=== PATIENT | female | born 2000 | race Caucasian/White ===

== ENCOUNTER 2021-01-01 20:43 | Emergency (ER) | payer MEDICAID ==
[~2021-01-01] VITALS: Ht 149.9 cm; Wt 48.6 kg
[2021-01-01] MEDS ORDERED: ETHI1TAB26 PO (20:49)
[2021-01-01] MEDS ORDERED: SODIUM CHLORIDE 0.9% 1,000 ML IV ONE (21:15)
[2021-01-01] MEDS ORDERED: METOCLOPRAMIDE HCL 5 MG/ML 2 ML VIAL IVP ONE (21:45)
[2021-01-01] MEDS ORDERED: DiphenhydrAMINE HCL 50 MG/ML VIAL IVP ONE (21:45)
[2021-01-01 23:00] VITALS: BP 104/64
== END 2021-01-01 23:00 | disposition home or self-care (01) ==
LOC: EMS 20:47
DX: R51.9 Headache, unspecified (principal); R11.2 Nausea with vomiting, unspecified
CPT/HCPCS: 36415; 84702; 96361; 96374; 96375; 99284; J1200; J2765; J7030

== ENCOUNTER 2021-12-16 17:56 | Emergency (ER) | payer MEDICAID ==
[~2021-12-16] VITALS: Ht 149.9 cm; Wt 49.1 kg
[~2021-12-16 17:56] MED LIST: ETHI1TAB26 PO
[2021-12-16] MEDS ORDERED: SILVER SULFADIAZINE 1% 25 GM CREAM TP ONE (19:45)
[2021-12-16] MEDS ORDERED: HYDROCODONE/ACETAMINOPHEN 5-325 MG TABLET PO ONE (19:45)
[2021-12-16 20:52] VITALS: BP 130/89
[2021-12-16] MEDS ORDERED: TRAM50TA4 PO (21:18)
== END 2021-12-16 21:38 | disposition home or self-care (01) ==
LOC: EMS 17:56
DX: T23.252A Burn of second degree of left palm, initial encounter (principal); Z79.899 Other long term (current) drug therapy; F12.90 Cannabis use, unspecified, uncomplicated; X19.XXXA Contact with other heat and hot substances, initial encounter; Y93.89 Activity, other specified; Y92.89 Other specified places as the place of occurrence of the external cause; Y99.8 Other external cause status
CPT/HCPCS: 16020; 99283

== ENCOUNTER 2023-07-05 23:37 | Emergency (ER) | payer MEDICAID ==
[~2023-07-05] VITALS: Ht 149.9 cm; Wt 49.0 kg
[~2023-07-05 23:37] MED LIST changes: +TRAM-559 PO
[2023-07-05 23:40] VITALS: TEMP 99.3
[2023-07-06 00:07] VITALS: BP 133/82; PULSE 78; RESP 14
[2023-07-06] MEDS ORDERED: METHOCARBAMOL 500 MG TABLET PO ONE (00:15)
[2023-07-06] MEDS ORDERED: KETOROLAC TROMETHAMINE 60 MG/2 ML VIAL IM ONE (00:15)
[2023-07-06] MEDS ORDERED: IBUP-1554 PO (01:32)
[2023-07-06] MEDS ORDERED: METH-659 PO (01:32)
== END 2023-07-06 01:38 | disposition home or self-care (01) ==
LOC: EMS 23:37
DX: S13.4XXA Sprain of ligaments of cervical spine, initial encounter (principal); F12.90 Cannabis use, unspecified, uncomplicated; V29.888A Rider (driver) (passenger) of other motorcycle injured in other specified transport accidents, initial encounter; Y93.I9 Activity, other involving external motion; Y92.89 Other specified places as the place of occurrence of the external cause; Y99.8 Other external cause status
CPT/HCPCS: 99283; 72040; 96372; J1885

== ENCOUNTER 2023-07-08 23:54 | Emergency (ER) | payer MEDICAID ==
[~2023-07-08] VITALS: Ht 149.9 cm; Wt 47.7 kg
[~2023-07-08 23:54] MED LIST changes: +IBUP-1554 PO; +METH-659 PO
[2023-07-09 00:18] VITALS: BP 124/74; PULSE 77; RESP 18; TEMP 98.2
== END 2023-07-09 00:35 | disposition home or self-care (01) ==
LOC: EMS 23:55
DX: S16.1XXA Strain of muscle, fascia and tendon at neck level, initial encounter (principal); G43.909 Migraine, unspecified, not intractable, without status migrainosus; F12.90 Cannabis use, unspecified, uncomplicated; X58.XXXA Exposure to other specified factors, initial encounter; Y93.89 Activity, other specified; Y92.89 Other specified places as the place of occurrence of the external cause; Y99.8 Other external cause status
CPT/HCPCS: 99282; Z7502

== ENCOUNTER 2024-02-18 14:47 | Emergency (ER) | payer MEDICAID, OTHER ==
[~2024-02-18] VITALS: Ht 149.9 cm; Wt 47.7 kg
[~2024-02-18 14:47] MED LIST changes: -TRAM-559 PO; +TRAM50TA5 PO
[2024-02-18 14:56] VITALS: TEMP 98.5
[2024-02-18 17:00] VITALS: BP 110/71; PULSE 79; RESP 16
== END 2024-02-18 17:02 | disposition home or self-care (01) ==
LOC: EMS 14:49
DX: T16.1XXA Foreign body in right ear, initial encounter (principal); G43.909 Migraine, unspecified, not intractable, without status migrainosus; W45.8XXA Other foreign body or object entering through skin, initial encounter; Y93.89 Activity, other specified; Y92.89 Other specified places as the place of occurrence of the external cause; Y99.8 Other external cause status
CPT/HCPCS: 69200; 99284; Z7502

== ENCOUNTER 2024-08-23 22:44 | Emergency (ER) | payer OTHER ==
[~2024-08-23] VITALS: Ht 149.9 cm; Wt 52.3 kg
[2024-08-23 23:49] LABS: APPEARANCE,URINE CLEAR (CLEAR); BILIRUBIN,URINE NEGATIVE (NEGATIVE); COLOR,URINE LIGHT YELLOW (YELLOW); GLUCOSE, URINE (UA) NEGATIVE (NEGATIVE); KETONES,URINE NEGATIVE (NEGATIVE); LEUKOCYTE ESTERASE ,URINE LARGE (NEGATIVE); NITRATE,URINE NEGATIVE (NEGATIVE); OCCULT BLOOD,URINE NEGATIVE (NEGATIVE); PH,URINE 6.5 (5.0-8.0); PH,URINE DRUG SCREEN 6.5 (5.0-8.0); PROTEIN,URINE NEGATIVE (NEGATIVE); SPECIFIC GRAVITIY, URINE 1.022 (1.003-1.030); UROBILINOGEN,URINE <=1.0 mg/dL (<=1.0)
[2024-08-24 00:07] LABS: BACTERIA,URINE None Seen /HPF (None Seen); HCG,QUAL URINE POSITIVE (NEGATIVE); RBC,URINE None Seen /HPF (0-2); SQUAMOUS EPITHELIAL CELL,UR Moderate /LPF (None Seen)
[2024-08-24 00:24] LABS: AMPHET/METH SCREEN,URINE NEGATIVE (NEGATIVE); BARBITURATE SCREEN, URINE NEGATIVE (NEGATIVE); BENZODIAZEPINES SCREEN,URINE NEGATIVE (NEGATIVE); CANNABINOID SCREEN,URINE POSITIVE (NEGATIVE); COCAINE SCREEN,URINE NEGATIVE (NEGATIVE); METHADONE SCREEN, URINE NEGATIVE (NEGATIVE); OPIATE SCREEN,URINE NEGATIVE (NEGATIVE); PHENCYCLIDINE SCREEN,URINE NEGATIVE (NEGATIVE)
[2024-08-24 00:27] LABS: BASOPHILS % (AUTO) 0.3 % (0.0-2.0); EOSINOPHILS % (AUTO) 1.4 % (1.0-6.0); HEMATOCRIT 39.6 % (36-46); HEMOGLOBIN 13.4 g/dL (12.0-16.0); LYMPHOCYTES # (AUTO) 2.9 K/uL (1.0-4.8); LYMPHOCYTES % (AUTO) 25.7 % (22.0-44.0); MEAN CORPUSCULAR HEMOGLOBIN 30.8 pg (26.0-34.0); MEAN CORPUSCULAR HGB CONC 33.7 G/dL (31.0-37.0); MEAN CORPUSCULAR VOLUME 91 fL (80-100); MONOCYTES # (AUTO) 0.8 K/uL (0.1-1.0); MONOCYTES % (AUTO) 7.3 % (2.0-9.0); NEUTROPHILS # (AUTO) 7.5 K/uL (1.8-7.7); NEUTROPHILS % (AUTO) 65.3 % (40.0-70.0); PLATELET COUNT (AUTO) 273 K/uL (150-450); RED BLOOD CELL COUNT(AUTO) 4.34 MIL/uL (4.00-5.20); RED CELL DISTRIBUTION WIDTH 13.6 % (11.5-14.5); WHITE BLOOD COUNT (AUTO) 11.4 K/uL (4.5-11.0)
[2024-08-24 00:28] LABS: ALCOHOL, URINE DRUG SCREEN NEGATIVE (NEGATIVE)
[2024-08-24 00:39] LABS: ANION GAP 12 mmol/L (8-16); CALCIUM, TOTAL 8.3 mg/dL (8.8-10.5); CARBON DIOXIDE 24 mmol/L (22-29); CHLORIDE 103 mmol/L (98-107); CREATININE 0.48 mg/dL (0.60-1.30); GLOMERULAR FILTR. RATE CALC > 60 mL/min (>60); GLUCOSE,RANDOM 96 mg/dL (70-110); POTASSIUM 3.6 mmol/L (3.5-5.1); SODIUM SERUM 139 mmol/L (136-145); UREA NITROGEN, BLOOD 8 mg/dL (7-18)
[2024-08-24] MEDS: AZITHROMYCIN 500 MG TABLET PO ONE (03:06)
[2024-08-24] MEDS: CefTRIAXone SODIUM 1 GM/VIAL IM ONE (03:06)
[2024-08-24] MEDS: LIDOCAINE/PF 1% 2 ML VIAL IM ONE (03:06)
[2024-08-24 06:56] VITALS: BP 118/63; PULSE 88; RESP 18; TEMP 97.3; O2SAT 100
== END 2024-08-24 07:48 | disposition home or self-care (01) ==
LOC: EMS 22:44
DX: O26.891 Other specified pregnancy related conditions, first trimester (principal); R10.9 Unspecified abdominal pain; O23.591 Infection of other part of genital tract in pregnancy, first trimester; Z3A.08 8 weeks gestation of pregnancy
CPT/HCPCS: 99285; 80048; 84703; 85025; 36415; 80307; 81001; 76801; 96372; J0456; J0696; J3490